=== PATIENT | male | born 1960 | race African-American/Black ===

== ENCOUNTER 2020-06-02 11:41 | Inpatient (IN) | payer OTHER ==
--- NOTE | 2020-06-02 12:05 | BHS.RME ---
Substance Use & Tx History - Substance Use History Heroin Substance amount: 1 bundle Frequency of use: Daily Substance route: Inhalation (ex: sniffing or snorting) Date of Last Use: 06/02/20 (started age 40) Alcohol Substance amount: 2-3 beers 16 oz Frequency of use: Less than 3 times per week Substance route: Oral Date of Last Use: 06/01/20 (started age 17) Nicotine Substance amount: 10 ciggs Frequency of use: Daily Substance route: Smoking Date of Last Use: 06/02/20 (started age 22) Physical/Psych/Mental Status - Behavior General Behavior: Increased activity (restlessness, agitation) Eye Contact: Normal - Cooperativeness Cooperativeness: Cooperative - Thinking Thought Processes: Tight, Logical, Goal Directed - Physical Health Problems Is patient presently having any pain?: No Does patient presently have any injuries (include location): No Does patient currently have a fever: No Is patient : No COWS - Scale Resting Pulse: 0= [place] 80 or Below Sweatin= No chills or Flushing Restless Observation: 1= Difficult to Sit Still Pupil Size: 0= Normal to Room Light Bone or Joint Aches: 2= Severe Diffuse Aches Runny Nose/ Eye Tearin= Nasal Congestion GI Upset > 30mins: 0= None Tremor Observation: 1= Tremor [place], Not Seen Yawning Observation: 1= 1-2x During Session Anxiety or Irritability: 1=Feels Anxious/Irritable Goose Flesh Skin: 0=Smooth Skin (not yet in full withdrawals due to use at 11AM) COWS Score: 7
[2020-06-02 13:35] VITALS: BMI 26.7
--- NOTE | 2020-06-02 13:57 | HP ---
COWS - Scale Resting Pulse: 0= [place] 80 or Below Sweatin= No chills or Flushing Restless Observation: 1= Difficult to Sit Still Pupil Size: 0= Normal to Room Light Bone or Joint Aches: 2= Severe Diffuse Aches Runny Nose/ Eye Tearin= Nasal Congestion GI Upset > 30mins: 0= None Tremor Observation: 1= Tremor [place], Not Seen Yawning Observation: 1= 1-2x During Session Anxiety or Irritability: 1=Feels Anxious/Irritable Goose Flesh Skin: 0=Smooth Skin (not yet in full withdrawals due to use at 11AM) COWS Score: 7 CIWA Score - Admission Criteria OASAS Guidelines: Admission for Medically Managed Detox: Requires at least one of the followin. CIWA greater than 12 2. Seizures within the past 24 hours 3. Delirium tremens within the past 24 hours 4. Hallucinations within the past 24 hours 5. Acute intervention needed for co occurring medical disorder 6. Acute intervention needed for co occurring psychiatric disorder 7. Severe withdrawal that cannot be handled at a lower level of care (continued vomiting, continued diarrhea, abnormal vital signs) requiring intravenous medication and/or fluids 8. Admitting History and Physical - Admission Chief Complaint: 59 yo M requesting detox from alcohol and heroin. History of Present Illness: 59 yo M requesting detox from alcohol and heroin. Pt reports relapsing on 09/2019 after being abstinent for 1 year prior to that. Last here in 2015. Meets criteria d/t high risk of overdose. PMH R knee brace s/p injury PSH R knee meniscus repair (2004) Psych none Social/Domiciled Living in [place] with fiance Legal none - Substance Use History Heroin Substance amount: 1 bundle Frequency of use: Daily Substance route: Inhalation (ex: sniffing or snorting) Date of Last Use: 06/02/20 (started age 40) Alcohol Substance amount: 2-3 beers 16 oz Frequency of use: Less than 3 times per week Substance route: Oral Date of Last Use: 06/01/20 (started age 17) Nicotine Substance amount: 10 ciggs Frequency of use: Daily Substance route: Smoking Date of Last Use: 06/02/20 (started age 22) History Source: Patient Limitations to Obtaining History: No Limitations - Smoking History Smoking history: Current every day smoker Aproximately how many cigarettes per day: 10 - Alcohol/Substance Use Hx Alcohol Use: Yes Admission ROS S - HPI Allergies/Adverse Reactions: Allergies Allergy/AdvReac Type Severity Reaction Status Date / Time No Known Allergies Allergy Verified 06/02/20 13:39 - Ebola screening Have you traveled outside of the country in the last 21 days: No Have you been sick,other than usual withdrawal symptoms: No Do you have a fever: No - Review of Systems Constitutional: No Symptoms Reported EENT: reports: Blurred Vision (far-sighted has glasses with him), Nose Congestion Respiratory: reports: No Symptoms reported Cardiac: reports: No Symptoms Reported GI: reports: Nausea Musculoskeletal: reports: Joint Pain, Muscle Pain (chronic knee pain (R knee)) Integumentary: reports: No Symptoms Reported Neuro: reports: No Symptoms reported Endocrine: reports: No Symptoms Reported Hematology: reports: No Symptoms Reported Psychiatric: reports: No Sypmtoms Reported Patient History - Patient Medical History Hx Anemia: No Hx Asthma: No Hx Chronic Obstructive Pulmonary Disease (COPD): No Hx Cancer: No Hx Cardiac Disorders: No Hx Congestive Heart Failure: No Hx Hypertension: No Hx Hypercholesterolemia: No Hx Pacemaker: No HX Cerebrovascular Accident: No Hx Seizures: No Hx Dementia: No Hx Diabetes: No Hx Gastrointestinal Disorders: No Hx Liver Disease: No Hx Genitourinary Disorders: No Hx Sexually Transmitted Disorders: Yes (1985,TREATED) Hx Renal Disease (ESRD): No Hx Thyroid Disease: No Hx Human Immunodeficiency Virus (HIV): No Hx Hepatitis C: No Hx Depression: No Hx Suicide Attempt: No Hx Bipolar Disorder: No Hx Schizophrenia: No - Patient Surgical History Past Surgical History: Yes Hx Neurologic Surgery: No Hx Cataract Extraction: No Hx Cardiac Surgery: No Hx Lung Surgery: No Hx Breast Surgery: No Hx Breast Biopsy: No Hx Abdominal Surgery: No Hx Appendectomy: No Hx Cholecystectomy: No Hx Genitourinary Surgery: No Hx Section: No Hx Orthopedic Surgery: Yes (MENISECTOMY RT. KNEE) Anesthesia Reaction: No - PPD History Previous Implant?: Yes Date: 11/24/15 - Smoking Cessation Smoking history: Current every day smoker Have you smoked in the past 12 months: Yes Aproximately how many cigarettes per day: 10 Hx Chewing Tobacco Use: No Initiated information on smoking cessation: Yes 'Breaking Loose' booklet given: 06/02/20 - Substances abused Alcohol Substance route: Oral Frequency: Daily Amount used: 2-3 beers(160z each) Age of first use: 17 Date of last use: 06/01/20 Heroin Substance route: Inhalation Frequency: Daily Amount used: 1 bundle Age of first use: 40 Date of last use: 06/02/20 [facility] - Vital Signs Vital Signs: Vital Signs - 24 hr 06/02/20 06/02/20 13:33 13:36 Temperature 97.8 F 97.8 F Pulse Rate 58 L 58 L Respiratory 18 18 Rate Blood Pressure 131/77 131/77 - Physical General Appearance: Yes: No Apparent Distress, Nourished, Appropriately Dressed HEENTM: Yes: EOMI, Hearing grossly Normal, Normocephalic, Normal Voice Respiratory: Yes: Lungs Clear, Normal Breath Sounds, No Respiratory Distress, No Accessory Muscle Use Neck: Yes: Supple, Trachea in good position Breast: Yes: Breast Exam Deferred Cardiology: Yes: Regular Rhythm, Bradycardia Abdominal: Yes: Normal Bowel Sounds, Non Tender, Flat, Soft Genitourinary: Yes: Other (deferred) Back: Yes: Normal Inspection Musculoskeletal: Yes: Gait Steady Extremities: Yes: Normal Inspection, Non-Tender, Swelling (R knee mildly swollen and warm), Other Neurological: Yes: Alert, Normal Response Integumentary: Yes: Normal Color, Dry, Warm - Diagnostic (1) Alcohol use disorder Current Visit: Yes Status: Acute Comment: admit; monitor for withdrawl sx (2) Chronic pain of right knee Current Visit: Yes Status: Chronic Comment: motrin/tylenol prn (3) Nicotine dependence Current Visit: Yes Status: Acute Qualifiers: Nicotine product type: cigarettes Substance use status: uncomplicated Qualified Code(s): F17.210 - Nicotine dependence, cigarettes, uncomplicated Comment: nicotine replacement therapy (4) Opioid dependence with withdrawal Current Visit: No Status: Acute Comment: admit; methadone detox protocol EKG Cleared for [facility]mission [facility] - Detox or Rehab [facility] Level of Care: Medically Managed Detox Regimen/Protocol: Methadone Breathalyzer - Breathalyzer Breathalyzer: 0 Urine Drug Screen - Test Device Lot number: [id number] Expiration date: 12/18/21 - Control Is test valid?: Yes - Results Drug screen NEGATIVE: No Urine drug screen results: MOP-Opiates Inpatient Rehab Admission - Rehab Decision to Admit Inpatient rehab admission?: No
[2020-06-02] MEDS ORDERED: NICOTINE POLACRILEX 2 MG GUM BUC PRN (14:13)
[2020-06-02] MEDS ORDERED: MAGNESIUM CITRATE 300 ML BOTTLE PO PRN (14:13)
[2020-06-02] MEDS ORDERED: BISMUTH SUBSALICYLATE 262 MG/15 ML BTL PO PRN (14:13)
[2020-06-02] MEDS ORDERED: METHOCARBAMOL 500 MG TABLET PO PRN (14:13)
[2020-06-02] MEDS ORDERED: IBUPROFEN 400 MG TABLET (FP) PO PRN (14:13)
[2020-06-02] MEDS ORDERED: cloNIDine HCL 0.1 MG TABLET PO PRN (14:13)
[2020-06-02] MEDS ORDERED: MAGNESIUM HYDROX 2400MG/30ML ORAL SUSPENSION 30 ML CUP PO PRN (14:13)
[2020-06-02] MEDS ORDERED: ACETAMINOPHEN 325 MG TABLET (FP) PO PRN ×2 (14:13)
[2020-06-02] MEDS ORDERED: METHADONE HCL 10 MG TABLET (FOR DETOX USE ONLY) PO ONE (14:13)
[2020-06-02] MEDS ORDERED: ONDANSETRON *ODT* 4 MG TABLET SL PRN (14:13)
[2020-06-02] MEDS ORDERED: MAG HYDROX/AL HYDROX/SIMETH 30 ML UNIT-DOSE CUP PO PRN (14:13)
[2020-06-02] MEDS ORDERED: MENTHOL/PHENOL 1 EACH UD MM PRN (14:13)
[2020-06-02] MEDS: NICOTINE 14 MG/24 HOURS TOPICAL PATCH TD SCH (15:07)
[2020-06-02] MEDS: hydrOXYzine PAMOATE 25 MG CAPSULE (FP) PO SCH ×2 (17:32→22:24)
[2020-06-02 20:18] LABS: HEMATOCRIT 40.9 % (35.4-49); HEMOGLOBIN 13.5 GM/dL (11.7-16.9); MCH 31.6 pg (25.7-33.7); MEAN PLT VOLUME 8.5 fl (7.5-11.1); PLATELET COUNT 285 K/MM3 (134-434); RBC 4.26 M/mm3 (4.00-5.60); RDW 12.4 % (11.9-15.9); WHITE BLOOD COUNT 6.1 K/mm3 (4.0-10.0)
[2020-06-02 20:26] LABS: BILIRUBIN,TOTAL 0.9 mg/dL (0.2-1); BLOOD UREA NITROGEN 18.1 mg/dL (7-18); CALCIUM 8.9 mg/dL (8.5-10.1); POTASSIUM 5.2 mmol/L (3.5-5.1); TOT PROT 7.5 g/dl (6.4-8.2)
[2020-06-02] MEDS: MELATONIN 5 MG TABLETS PO SCH (22:24)
[2020-06-02] MEDS: THIAMINE HCL 100 MG TABLET (FP) PO SCH (22:24)
[2020-06-03] MEDS: hydrOXYzine PAMOATE 25 MG CAPSULE (FP) PO SCH ×2 (07:57→13:47)
--- NOTE | 2020-06-03 08:29 | PN ---
Teaching Attending Note Name of Resident: Humberto De Guzman ATTENDING PHYSICIAN STATEMENT I saw and evaluated the patient. I reviewed the resident's note and discussed the case with the resident. I agree with the resident's findings and plan as documented. SUBJECTIVE: OBJECTIVE: ASSESSMENT AND PLAN: 1. Opioid use disorder, withdrawl Plan 1. Admit to detox, methadone protocol
[2020-06-03] MEDS ORDERED: METHADONE HCL 5 MG TABLET (FOR DETOX USE ONLY) ONE (09:06)
[2020-06-03] MEDS ORDERED: METHADONE HCL 10 MG TABLET (FOR DETOX USE ONLY) ONE (09:06)
--- NOTE | 2020-06-03 09:44 | EKG ---
Test Reason : Blood Pressure : / mmHG Vent. Rate : 056 BPM Atrial Rate : 056 BPM P-R Int : 134 ms QRS Dur : 086 ms QT Int : 410 ms P-R-T Axes : 055 -02 045 degrees QTc Int : 395 ms SINUS BRADYCARDIA OTHERWISE NORMAL ECG NO PREVIOUS ECGS AVAILABLE Confirmed by Garrett Fleming ([id number]) on 06/03/2020 9:43:43 AM Referred By: Confirmed By:Garrett Fleming
[2020-06-03] MEDS ORDERED: METHADONE (DETOX) 20 MG, METHADONE (DETOX) 5 MG PO ONE (10:00)
[2020-06-03] MEDS: PRENATAL VITAMINS W/ FOLIC ACID TABLET (FP) PO SCH (11:18)
[2020-06-03] MEDS: NICOTINE 14 MG/24 HOURS TOPICAL PATCH TD SCH (11:18)
--- NOTE | 2020-06-03 11:50 | PN ---
BHS COWS - Scale Resting Pulse: 0= [place] 80 or Below Sweatin= Chills/Flushing Restless Observation: 1= Difficult to Sit Still Pupil Size: 0= Normal to Room Light Bone or Joint Aches: 1= Mild Discomfort Runny Nose/ Eye Tearin= None GI Upset > 30mins: 0= None Tremor Observation of Outstretched Hands: 1= Tremor [place], Not Seen Yawning Observation: 1= 1-2x During Session Anxiety or Irritability: 0= None Goose Flesh Skin: 0=Smooth Skin COWS Score: 5 BHS Progress Note (SOAP) Subjective: feeling ok sweats tired interrupted sleep Objective: 06/03/20 11:50 Vital Signs Temperature 98.1 F 06/03/20 09:11 Pulse Rate 74 06/03/20 09:11 Respiratory Rate 16 06/03/20 09:11 Blood Pressure 137/71 06/03/20 09:11 O2 Sat by Pulse Oximetry (%) 97 06/03/20 06:15 Laboratory Tests 06/02/20 06/02/20 06/02/20 13:00 13:00 13:00 WBC 6.1 RBC 4.26 Hgb 13.5 Hct 40.9 MCV 96.0 MCH 31.6 MCHC 33.0 RDW 12.4 Plt Count 285 D MPV 8.5 Sodium 138 Potassium 5.2 H Chloride 101 Carbon Dioxide 34 H Anion Gap 3 L BUN 18.1 H Creatinine 1.0 Est GFR (CKD-EPI)AfAm 96.40 Est GFR (CKD-EPI)NonAf 83.18 Random Glucose 99 Calcium 8.9 Total Bilirubin 0.9 AST 20 ALT 20 Alkaline Phosphatase 66 Total Protein 7.5 Albumin 4.0 Syphilis Serology Reactive A* labs noted mildly elevated potassium and BUN will repeat labs aaox3 lying in bed no acute distress Assessment: 06/03/20 11:51 withdrawals Plan: continue detox repeat cmp
[2020-06-03] MEDS: THIAMINE HCL 100 MG TABLET (FP) PO SCH (22:14)
[2020-06-03] MEDS: hydrOXYzine PAMOATE 25 MG CAPSULE (FP) PO PRN (22:14)
[2020-06-03] MEDS: MELATONIN 5 MG TABLETS PO SCH (22:14)
[2020-06-04] MEDS ORDERED: METHADONE HCL 10 MG TABLET (FOR DETOX USE ONLY) PO ONE (10:00)
[2020-06-04] MEDS: PRENATAL VITAMINS W/ FOLIC ACID TABLET (FP) PO SCH (10:12)
[2020-06-04] MEDS: NICOTINE 14 MG/24 HOURS TOPICAL PATCH TD SCH (10:12)
--- NOTE | 2020-06-04 12:35 | PN ---
BHS COWS - Scale Resting Pulse: 0= [place] 80 or Below Sweatin= Chills/Flushing Restless Observation: 1= Difficult to Sit Still Pupil Size: 0= Normal to Room Light Bone or Joint Aches: 0= None Runny Nose/ Eye Tearin= None GI Upset > 30mins: 0= None Tremor Observation of Outstretched Hands: 1= Tremor [place], Not Seen Yawning Observation: 0= None Anxiety or Irritability: 1=Feels Anxious/Irritable Goose Flesh Skin: 0=Smooth Skin COWS Score: 4 BHS Progress Note (SOAP) Subjective: feeling better tired body aches Objective: 06/04/20 12:34 Vital Signs Temperature 97.1 F L 06/04/20 08:11 Pulse Rate 77 06/04/20 08:11 Respiratory Rate 16 06/04/20 08:11 Blood Pressure 135/92 06/04/20 08:11 O2 Sat by Pulse Oximetry (%) 98 06/04/20 08:11 Laboratory Tests 06/02/20 06/02/20 06/02/20 13:00 13:00 13:00 WBC 6.1 RBC 4.26 Hgb 13.5 Hct 40.9 MCV 96.0 MCH 31.6 MCHC 33.0 RDW 12.4 Plt Count 285 D MPV 8.5 Sodium 138 Potassium 5.2 H Chloride 101 Carbon Dioxide 34 H Anion Gap 3 L BUN 18.1 H Creatinine 1.0 Est GFR (CKD-EPI)AfAm 96.40 Est GFR (CKD-EPI)NonAf 83.18 Random Glucose 99 Calcium 8.9 Total Bilirubin 0.9 AST 20 ALT 20 Alkaline Phosphatase 66 Total Protein 7.5 Albumin 4.0 Syphilis Serology Reactive A* RPR Titer COVID-19 (GET) 06/02/20 06/02/20 13:00 14:30 WBC RBC Hgb Hct MCV MCH MCHC RDW Plt Count MPV Sodium Potassium Chloride Carbon Dioxide Anion Gap BUN Creatinine Est GFR (CKD-EPI)AfAm Est GFR (CKD-EPI)NonAf Random Glucose Calcium Total Bilirubin AST ALT Alkaline Phosphatase Total Protein Albumin Syphilis Serology RPR Titer Reactive 1:1 H D COVID-19 (GET) Not detected aaox3 ambulating no acute distress Assessment: 06/04/20 12:34 withdrawals Plan: continue detox
[2020-06-04] MEDS: hydrOXYzine PAMOATE 25 MG CAPSULE (FP) PO PRN (23:27)
[2020-06-04] MEDS: MELATONIN 5 MG TABLETS PO SCH (23:28)
[2020-06-04] MEDS: THIAMINE HCL 100 MG TABLET (FP) PO SCH (23:28)
[2020-06-05] MEDS: hydrOXYzine PAMOATE 25 MG CAPSULE (FP) PO PRN ×2 (03:38→09:40)
[2020-06-05 07:20] VITALS: TEMP 97.1
[2020-06-05] MEDS ORDERED: METHADONE HCL 5 MG TABLET (FOR DETOX USE ONLY) ONE (09:19)
[2020-06-05] MEDS ORDERED: METHADONE HCL 10 MG TABLET (FOR DETOX USE ONLY) ONE (09:20)
[2020-06-05] MEDS: NICOTINE 14 MG/24 HOURS TOPICAL PATCH TD SCH (09:37)
[2020-06-05] MEDS: PRENATAL VITAMINS W/ FOLIC ACID TABLET (FP) PO SCH (09:38)
[2020-06-05 09:59] VITALS: BP 128/74; PULSE 72
[2020-06-05] MEDS ORDERED: METHADONE (DETOX) 10 MG, METHADONE (DETOX) 5 MG PO ONE (10:00)
[2020-06-05 11:04] LABS: BLOOD UREA NITROGEN 14.9 mg/dL (7-18); CREATININE 0.9 mg/dL (0.55-1.3)
[2020-06-05 11:05] LABS: ALBUMIN 3.8 g/dl (3.4-5.0); BILIRUBIN,TOTAL 0.8 mg/dL (0.2-1); CALCIUM 9.1 mg/dL (8.5-10.1); POTASSIUM 4.4 mmol/L (3.5-5.1); TOT PROT 7.2 g/dl (6.4-8.2)
--- NOTE | 2020-06-05 13:26 | DS ---
[facility] Detox Discharge Summary Admission Date: 06/02/20 Discharge Date: 06/05/20 - History Present History: Alcohol Dependence, Opioid Dependence - Physical Exam Results Vital Signs: Vital Signs Temperature 97.1 F L 06/05/20 08:51 Pulse Rate 72 06/05/20 08:51 Respiratory Rate 18 06/05/20 08:51 Blood Pressure 128/74 06/05/20 08:51 O2 Sat by Pulse Oximetry (%) 97 06/05/20 08:51 Pertinent Admission Physical Exam Findings: Vital Signs Temperature 97.1 F L 06/05/20 08:51 Pulse Rate 72 06/05/20 08:51 Respiratory Rate 18 06/05/20 08:51 Blood Pressure 128/74 06/05/20 08:51 O2 Sat by Pulse Oximetry (%) 97 06/05/20 08:51 Laboratory Tests 06/02/20 06/02/20 06/02/20 13:00 13:00 13:00 WBC 6.1 RBC 4.26 Hgb 13.5 Hct 40.9 MCV 96.0 MCH 31.6 MCHC 33.0 RDW 12.4 Plt Count 285 D MPV 8.5 Sodium 138 Potassium 5.2 H Chloride 101 Carbon Dioxide 34 H Anion Gap 3 L BUN 18.1 H Creatinine 1.0 Est GFR (CKD-EPI)AfAm 96.40 Est GFR (CKD-EPI)NonAf 83.18 Random Glucose 99 Calcium 8.9 Total Bilirubin 0.9 AST 20 ALT 20 Alkaline Phosphatase 66 Total Protein 7.5 Albumin 4.0 Syphilis Serology Reactive A* RPR Titer COVID-19 (GET) 06/02/20 06/02/20 06/05/20 13:00 14:30 07:50 WBC RBC Hgb Hct MCV MCH MCHC RDW Plt Count MPV Sodium 139 Potassium 4.4 Chloride 105 Carbon Dioxide 30 Anion Gap 4 L BUN 14.9 Creatinine 0.9 Est GFR (CKD-EPI)AfAm 109.50 Est GFR (CKD-EPI)NonAf 94.48 Random Glucose 91 Calcium 9.1 Total Bilirubin 0.8 AST 16 ALT 24 Alkaline Phosphatase 66 Total Protein 7.2 Albumin 3.8 Syphilis Serology RPR Titer Reactive 1:1 H D COVID-19 (GET) Not detected labs noted aaox3 ambulating no acute distress lungs CTA - Treatment Hospital Course: Detox Protocol Followed, Detoxed Safely, Responded well, Discharged Condition Good, Rehab Referral Accepted - Medication Discharge Medications: Ambulatory Orders NK [No Known Home Medication] 11/22/15 - Diagnosis (1) Nicotine dependence Current Visit: Yes Status: Chronic Qualifiers: Nicotine product type: cigarettes Substance use status: uncomplicated Qualified Code(s): F17.210 - Nicotine dependence, cigarettes, uncomplicated (2) Chronic pain of right knee Current Visit: Yes Status: Chronic (3) Alcohol dependence with uncomplicated withdrawal Current Visit: Yes Status: Acute (4) Low back pain Current Visit: No Status: Chronic Qualifiers: Back pain laterality: right Sciatica presence: with sciatica Sciatica laterality: sciatica of right side Qualified Code(s): M54.41 - Lumbago with s ciatica, right side (5) Opioid dependence with withdrawal Current Visit: Yes Status: Chronic - AMA Did Patient Leave Against Medical Advice: No
[2020-06-06] MEDS ORDERED: METHADONE HCL 10 MG TABLET (FOR DETOX USE ONLY) PO ONE (10:00)
[2020-06-07] MEDS ORDERED: METHADONE HCL 5 MG TABLET (FOR DETOX USE ONLY) PO ONE (06:00)
== END 2020-06-05 11:11 | disposition home or self-care (01) | DRG 773 ==
LOC: YASAS 11:41 → Y6N 14:22
PROVIDERS: ADMIT Allergy & Immunology; ATTEND Allergy & Immunology
PROC: HZ2ZZZZ Detoxification Services for Substance Abuse Treatment (ICD-10-PCS; principal; 2020-06-02)
DX: F10.230 Alcohol dependence with withdrawal, uncomplicated (principal); F11.23 Opioid dependence with withdrawal; F17.210 Nicotine dependence, cigarettes, uncomplicated; M54.41 Lumbago with sciatica, right side; M25.561 Pain in right knee; G89.29 Other chronic pain; Z86.19 Personal history of other infectious and parasitic diseases; Z98.890 Other specified postprocedural states
CPT/HCPCS: 36415; 80053; 85027; 86593; 86780; 93005; 93010; J0735; U0003

== ENCOUNTER 2021-08-19 17:35 | Inpatient (IN) | payer OTHER ==
[2021-08-19] MEDS ORDERED: ONDANSETRON *ODT* 4 MG TABLET SL PRN (19:06)
[2021-08-19] MEDS ORDERED: MAG HYDROX/AL HYDROX/SIMETH 30 ML UNIT-DOSE CUP PO PRN (19:06)
[2021-08-19] MEDS ORDERED: BISMUTH SUBSALICYLATE 524 MG/30 ML PO PRN (19:06)
[2021-08-19] MEDS ORDERED: IBUPROFEN 400 MG TABLET (FP) PO PRN (19:06)
[2021-08-19] MEDS ORDERED: ACETAMINOPHEN 325 MG TABLET (FP) PO PRN ×2 (19:06)
[2021-08-19] MEDS ORDERED: MAGNESIUM CITRATE 300 ML BOTTLE PO PRN (19:06)
[2021-08-19] MEDS ORDERED: MAGNESIUM HYDROX 2400MG/30ML ORAL SUSPENSION 30 ML CUP PO PRN (19:06)
[2021-08-19] MEDS ORDERED: MENTHOL/PHENOL 1 EACH UD MM PRN (19:06)
[2021-08-19 23:35] VITALS: BMI 24.0
[2021-08-20] MEDS: THIAMINE HCL 100 MG TABLET (FP) PO SCH ×2 (00:21→22:58)
[2021-08-20] MEDS: MELATONIN 5 MG TABLETS PO SCH ×2 (00:21→22:58)
[2021-08-20] MEDS: hydrOXYzine PAMOATE 25 MG CAPSULE (FP) PO SCH ×6 (00:21→22:58)
[2021-08-20] MEDS ORDERED: cloNIDine HCL 0.1 MG TABLET PO PRN (12:09)
[2021-08-20] MEDS ORDERED: methaDONE HCL 10 MG TABLET (FOR DETOX USE ONLY) PO ONE (12:09)
[2021-08-20] MEDS: diazePAM 5 MG TABLET PO PRN ×3 (12:35→22:59)
[2021-08-20] MEDS: METHOCARBAMOL 500 MG TABLET PO PRN (12:36)
[2021-08-20] MEDS: PRENATAL VITAMINS W/ FOLIC ACID TABLET (FP) PO SCH (12:36)
[2021-08-20 13:10] LABS: HEMATOCRIT 39.2 % (35.4-49); HEMOGLOBIN 13.3 GM/dL (11.7-16.9); MCH 32.9 pg (25.7-33.7); MEAN PLT VOLUME 8.4 fl (7.5-11.1); PLATELET COUNT 244 10^3/uL (134-434); RBC 4.04 M/mm3 (4.00-5.60); RDW 12.5 % (11.9-15.9); WHITE BLOOD COUNT 6.3 K/mm3 (4.0-10.0)
[2021-08-20 13:28] LABS: BLOOD UREA NITROGEN 18.6 mg/dL (7-18)
[2021-08-20 13:31] LABS: ALBUMIN 3.4 g/dl (3.4-5.0); CALCIUM 8.6 mg/dL (8.5-10.1)
[2021-08-20 13:35] LABS: CREATININE 0.9 mg/dL (0.55-1.3)
[2021-08-20 13:36] LABS: TOT PROT 6.5 g/dl (6.4-8.2)
[2021-08-20 13:39] LABS: BILIRUBIN,TOTAL 0.5 mg/dL (0.2-1)
[2021-08-21] MEDS: hydrOXYzine PAMOATE 25 MG CAPSULE (FP) PO SCH ×5 (06:11→22:49)
[2021-08-21] MEDS ORDERED: methaDONE HCL 10 MG TABLET (FOR DETOX USE ONLY) ONE (09:40)
[2021-08-21] MEDS: PRENATAL VITAMINS W/ FOLIC ACID TABLET (FP) PO SCH (11:10)
[2021-08-21] MEDS: diazePAM 5 MG TABLET PO PRN ×2 (11:12→17:57)
[2021-08-21] MEDS: NICOTINE 10 MG CARTRIDGE (INHALER) IH PRN ×2 (13:13→19:08)
[2021-08-21] MEDS: METHOCARBAMOL 500 MG TABLET PO PRN ×2 (14:36→22:46)
[2021-08-21] MEDS: MELATONIN 5 MG TABLETS PO SCH (22:46)
[2021-08-21] MEDS: THIAMINE HCL 100 MG TABLET (FP) PO SCH (22:46)
[2021-08-22] MEDS: METHOCARBAMOL 500 MG TABLET PO PRN (05:08)
[2021-08-22] MEDS: hydrOXYzine PAMOATE 25 MG CAPSULE (FP) PO SCH ×3 (05:08→13:49)
[2021-08-22] MEDS ORDERED: methaDONE HCL 10 MG TABLET (FOR DETOX USE ONLY) PO ONE (10:00)
[2021-08-22] MEDS: PRENATAL VITAMINS W/ FOLIC ACID TABLET (FP) PO SCH (10:21)
[2021-08-22 13:37] VITALS: BP 122/66; PULSE 79; TEMP 97.8
[2021-08-24] MEDS ORDERED: methaDONE HCL 10 MG TABLET (FOR DETOX USE ONLY) PO ONE (10:00)
== END 2021-08-22 14:52 | disposition left against medical advice (07) | DRG 770 ==
LOC: YASAS 17:35 → Y6N 21:15
PROVIDERS: ADMIT Allergy & Immunology; ATTEND Allergy & Immunology
PROC: HZ2ZZZZ Detoxification Services for Substance Abuse Treatment (ICD-10-PCS; principal; 2021-08-19)
DX: F11.23 Opioid dependence with withdrawal (principal); F10.230 Alcohol dependence with withdrawal, uncomplicated; F17.210 Nicotine dependence, cigarettes, uncomplicated; M54.41 Lumbago with sciatica, right side; G89.29 Other chronic pain; M17.11 Unilateral primary osteoarthritis, right knee
CPT/HCPCS: 36415; 80053; 85027; 86593; 86780; C9803; J0735; U0003; U0005

== ENCOUNTER 2022-04-06 10:42 | Inpatient (IN) | payer OTHER ==
[2022-04-06 11:17] VITALS: BMI 25.1
[2022-04-06] MEDS ORDERED: MAGNESIUM HYDROX 2400MG/30ML ORAL SUSPENSION 30 ML CUP PO PRN (11:43)
[2022-04-06] MEDS ORDERED: NALOXONE HCL (KLOXXADO) 8 MG SPRAY NS PRN (11:43)
[2022-04-06] MEDS ORDERED: IBUPROFEN 400 MG TABLET (FP) PO PRN (11:43)
[2022-04-06] MEDS ORDERED: LOPERAMIDE HCL 2 MG CAPSULE PO PRN (11:43)
[2022-04-06] MEDS ORDERED: DICYCLOMINE HCL 10 MG CAPSULE PO PRN (11:43)
[2022-04-06] MEDS ORDERED: BENZOCAINE/MENTHOL (CHLORASEPTIC ) LOZENGE MM PRN (11:43)
[2022-04-06] MEDS ORDERED: IBUPROFEN 600 MG TABLET (FP) PO PRN (11:43)
[2022-04-06] MEDS ORDERED: ACETAMINOPHEN 325 MG TABLET (FP) PO PRN ×2 (11:43)
[2022-04-06] MEDS ORDERED: MAGNESIUM CITRATE 300 ML BOTTLE PO PRN (11:43)
[2022-04-06] MEDS ORDERED: ONDANSETRON *ODT* 4 MG TABLET SL PRN (11:43)
[2022-04-06] MEDS ORDERED: BISMUTH SUBSALICYLATE 262 MG/15 ML BTL PO PRN (11:43)
[2022-04-06] MEDS ORDERED: MAG HYDROX/AL HYDROX/SIMETH 30 ML UNIT-DOSE CUP PO PRN (11:43)
[2022-04-06] MEDS ORDERED: cloNIDine HCL 0.1 MG TABLET PO PRN (15:22)
[2022-04-06] MEDS: hydrOXYzine PAMOATE 25 MG CAPSULE (FP) PO SCH ×3 (15:50→22:23)
[2022-04-06] MEDS: NICOTINE 7 MG/24 HOURS TOPICAL PATCH TD SCH (15:50)
[2022-04-06] MEDS ORDERED: methaDONE HCL 10 MG TABLET (FOR DETOX USE ONLY) PO ONE (16:45)
[2022-04-06 17:15] LABS: HEMATOCRIT 43.8 % (35.4-49); HEMOGLOBIN 14.2 GM/dL (11.7-16.9); MCH 31.2 pg (25.7-33.7); MCHC 32.5 g/dl (32.0-35.9); MEAN CELL VOLUME 95.9 fl (80-96); MEAN PLT VOLUME 8.5 fl (7.5-11.1); PLATELET COUNT 260 10^3/uL (134-434); RBC 4.57 M/mm3 (4.00-5.60); RDW 12.9 % (11.9-15.9); WHITE BLOOD COUNT 7.9 K/mm3 (4.0-10.0)
[2022-04-06 17:24] LABS: ALBUMIN 4.2 g/dl (3.4-5.0); BLOOD UREA NITROGEN 17.3 mg/dL (7-18)
[2022-04-06 17:25] LABS: CALCIUM 9.6 mg/dL (8.5-10.1)
[2022-04-06 17:26] LABS: CREATININE 0.9 mg/dL (0.55-1.3)
[2022-04-06 17:28] LABS: TOT PROT 7.5 g/dl (6.4-8.2)
[2022-04-06 17:30] LABS: BILIRUBIN,TOTAL 0.5 mg/dL (0.2-1)
[2022-04-06] MEDS: MELATONIN 5 MG TABLETS PO SCH (22:23)
[2022-04-06] MEDS: COLCHICINE 0.6 MG TAB PO SCH (22:24)
[2022-04-06] MEDS: THIAMINE HCL 100 MG TABLET (FP) PO SCH (22:24)
[2022-04-07] MEDS: hydrOXYzine PAMOATE 25 MG CAPSULE (FP) PO SCH ×5 (06:36→23:08)
[2022-04-07] MEDS ORDERED: methaDONE HCL 10 MG TABLET (FOR DETOX USE ONLY) ONE (09:04)
[2022-04-07] MEDS: COLCHICINE 0.6 MG TAB PO SCH ×2 (10:41→23:08)
[2022-04-07] MEDS: PRENATAL VITAMINS W/ FOLIC ACID TABLET (FP) PO SCH (10:41)
[2022-04-07] MEDS: NICOTINE 7 MG/24 HOURS TOPICAL PATCH TD SCH (10:41)
[2022-04-07] MEDS: NICOTINE 10 MG CARTRIDGE (INHALER) IH PRN (16:34)
[2022-04-07] MEDS: THIAMINE HCL 100 MG TABLET (FP) PO SCH (23:08)
[2022-04-07] MEDS: MELATONIN 5 MG TABLETS PO SCH (23:08)
[2022-04-07] MEDS: METHOCARBAMOL 500 MG TABLET PO PRN (23:10)
[2022-04-08] MEDS: hydrOXYzine PAMOATE 25 MG CAPSULE (FP) PO SCH ×5 (07:10→22:43)
[2022-04-08] MEDS ORDERED: methaDONE HCL 10 MG TABLET (FOR DETOX USE ONLY) PO ONE (10:00)
[2022-04-08] MEDS: PRENATAL VITAMINS W/ FOLIC ACID TABLET (FP) PO SCH (10:29)
[2022-04-08] MEDS: NICOTINE 7 MG/24 HOURS TOPICAL PATCH TD SCH (10:30)
[2022-04-08] MEDS: COLCHICINE 0.6 MG TAB PO SCH ×2 (10:30→22:42)
[2022-04-08] MEDS: NICOTINE 10 MG CARTRIDGE (INHALER) IH PRN (11:44)
[2022-04-08 15:21] LABS: CALCIUM 9.2 mg/dL (8.5-10.1)
[2022-04-08 15:22] LABS: BLOOD UREA NITROGEN 14.5 mg/dL (7-18)
[2022-04-08 15:25] LABS: CREATININE 0.9 mg/dL (0.55-1.3)
[2022-04-08 17:57] VITALS: RESP 18
[2022-04-08] MEDS: diazePAM 5 MG TABLET PO PRN (18:14)
[2022-04-08] MEDS: MELATONIN 5 MG TABLETS PO SCH (22:42)
[2022-04-08] MEDS: THIAMINE HCL 100 MG TABLET (FP) PO SCH (22:43)
[2022-04-09] MEDS: hydrOXYzine PAMOATE 25 MG CAPSULE (FP) PO SCH ×5 (06:55→22:23)
[2022-04-09] MEDS: NICOTINE 10 MG CARTRIDGE (INHALER) IH PRN ×2 (09:39→19:36)
[2022-04-09] MEDS ORDERED: methaDONE HCL 10 MG TABLET (FOR DETOX USE ONLY) PO ONE (10:00)
[2022-04-09] MEDS: PRENATAL VITAMINS W/ FOLIC ACID TABLET (FP) PO SCH (10:14)
[2022-04-09] MEDS: NICOTINE 7 MG/24 HOURS TOPICAL PATCH TD SCH (10:15)
[2022-04-09] MEDS: METHOCARBAMOL 500 MG TABLET PO PRN (10:15)
[2022-04-09] MEDS: diazePAM 5 MG TABLET PO PRN ×2 (10:16→18:05)
[2022-04-09] MEDS: COLCHICINE 0.6 MG TAB PO SCH ×2 (10:16→22:23)
[2022-04-09] MEDS: THIAMINE HCL 100 MG TABLET (FP) PO SCH (22:23)
[2022-04-09] MEDS: MELATONIN 5 MG TABLETS PO SCH (22:23)
[2022-04-10] MEDS: diazePAM 5 MG TABLET PO PRN (00:58)
[2022-04-10 06:13] VITALS: BP 134/76; PULSE 68; TEMP 97.3
[2022-04-10] MEDS: hydrOXYzine PAMOATE 25 MG CAPSULE (FP) PO SCH ×2 (06:20→11:17)
[2022-04-10] MEDS ORDERED: methaDONE HCL 10 MG TABLET (FOR DETOX USE ONLY) PO ONE (10:00)
[2022-04-10] MEDS: COLCHICINE 0.6 MG TAB PO SCH (11:17)
[2022-04-10] MEDS: NICOTINE 7 MG/24 HOURS TOPICAL PATCH TD SCH (11:17)
[2022-04-10] MEDS: PRENATAL VITAMINS W/ FOLIC ACID TABLET (FP) PO SCH (11:17)
== END 2022-04-10 08:50 | disposition home or self-care (01) | DRG 773 ==
LOC: YASAS 10:42 → SUATTDRO 10:42 → Y3N 14:36
PROVIDERS: ADMIT Allergy & Immunology; ATTEND Surgery
PROC: HZ2ZZZZ Detoxification Services for Substance Abuse Treatment (ICD-10-PCS; principal; 2022-04-06)
DX: F11.23 Opioid dependence with withdrawal (principal); F10.230 Alcohol dependence with withdrawal, uncomplicated; F17.210 Nicotine dependence, cigarettes, uncomplicated; M25.561 Pain in right knee; M54.41 Lumbago with sciatica, right side; G89.29 Other chronic pain
CPT/HCPCS: 36415; 80048; 80053; 85027; 86593; 86780; C9803-CS; U0003; U0005

== ENCOUNTER 2023-03-08 15:25 | Inpatient (IN) | payer OTHER ==
[2023-03-08 16:38] VITALS: BMI 26.4
[2023-03-08] MEDS ORDERED: POLYETHYLENE GLYCOL (HEALTHYLAX) 3350 17 GM PACKET PO PRN (22:48)
[2023-03-08] MEDS ORDERED: BENZOCAINE/MENTHOL (CHLORASEPTIC ) LOZENGE MM PRN (22:48)
[2023-03-08] MEDS ORDERED: DICYCLOMINE HCL 10 MG CAPSULE PO PRN (22:48)
[2023-03-08] MEDS ORDERED: P-EPHED 60MG/TRIPROLIDI 2.5MG TABLET PO PRN (22:48)
[2023-03-08] MEDS ORDERED: BISMUTH SUBSALICYLATE 524 MG/30 ML PO PRN (22:48)
[2023-03-08] MEDS ORDERED: guaiFENesin 600 MG TABLET.ER (FP) PO PRN (22:48)
[2023-03-08] MEDS ORDERED: MAGNESIUM HYDROX 2400MG/30ML ORAL SUSPENSION 30 ML CUP PO PRN (22:48)
[2023-03-08] MEDS ORDERED: BENZONATATE 200 MG CAPSULE PO PRN (22:48)
[2023-03-08] MEDS ORDERED: LOPERAMIDE HCL 2 MG CAPSULE PO PRN (22:48)
[2023-03-08] MEDS ORDERED: ONDANSETRON *ODT* 4 MG TABLET SL PRN (22:48)
[2023-03-08] MEDS ORDERED: MAG HYDROX/AL HYDROX/SIMETH 30 ML UNIT-DOSE CUP PO PRN (22:48)
[2023-03-08] MEDS ORDERED: ACETAMINOPHEN 325 MG TABLET (FP) PO PRN (22:48)
[2023-03-08] MEDS ORDERED: NALOXONE HCL 0.4 MG/ML VIAL IM PRN (22:48)
[2023-03-08] MEDS ORDERED: NALOXONE HCL (KLOXXADO) 8 MG SPRAY NS PRN (22:48)
[2023-03-08] MEDS ORDERED: IBUPROFEN 400 MG TABLET (FP) PO PRN (22:48)
[2023-03-08] MEDS ORDERED: methaDONE HCL 10 MG TABLET (FOR DETOX USE ONLY) PO ONE (22:50)
[2023-03-08] MEDS ORDERED: MELATONIN 5 MG TABLETS ONE (23:14)
[2023-03-08] MEDS ORDERED: methaDONE HCL 10 MG TABLET (FOR DETOX USE ONLY) ONE (23:14)
[2023-03-09] MEDS: METHOCARBAMOL 500 MG TABLET PO PRN ×3 (01:11→23:23)
[2023-03-09] MEDS: hydrOXYzine PAMOATE 25 MG CAPSULE (FP) PO PRN ×2 (01:11→10:27)
[2023-03-09] MEDS: cloNIDine HCL 0.1 MG TABLET PO PRN ×2 (01:12→23:23)
[2023-03-09] MEDS: PRENATAL VITAMINS W/ FOLIC ACID TABLET (FP) PO SCH (10:27)
[2023-03-09 10:42] LABS: HEMATOCRIT 37.1 % (35.4-49); HEMOGLOBIN 12.2 GM/dL (11.7-16.9); MCH 31.1 pg (25.7-33.7); MCHC 32.9 g/dl (32.0-35.9); MEAN CELL VOLUME 94.6 fl (80-96); PLATELET COUNT 213 10^3/uL (134-434); RBC 3.92 M/mm3 (4.00-5.60); RDW 12.6 % (11.9-15.9); WHITE BLOOD COUNT 5.1 K/mm3 (4.0-10.0)
[2023-03-09 10:51] LABS: CALCIUM 8.8 mg/dL (8.5-10.1)
[2023-03-09 10:52] LABS: ALBUMIN 3.3 g/dl (3.4-5.0); BLOOD UREA NITROGEN 17.8 mg/dL (7-18)
[2023-03-09 10:55] LABS: CREATININE 0.8 mg/dL (0.55-1.3)
[2023-03-09 10:57] LABS: BILIRUBIN,TOTAL 0.7 mg/dL (0.2-1)
[2023-03-09] MEDS: MELATONIN 5 MG TABLETS PO SCH (23:20)
[2023-03-09] MEDS: THIAMINE HCL 100 MG TABLET (FP) PO SCH (23:21)
[2023-03-10] MEDS ORDERED: methaDONE HCL 10 MG TABLET (FOR DETOX USE ONLY) PO ONE (10:00)
[2023-03-10] MEDS: hydrOXYzine PAMOATE 25 MG CAPSULE (FP) PO PRN (10:08)
[2023-03-10] MEDS: METHOCARBAMOL 500 MG TABLET PO PRN (10:08)
[2023-03-10] MEDS: PRENATAL VITAMINS W/ FOLIC ACID TABLET (FP) PO SCH (10:08)
[2023-03-10] MEDS ORDERED: MAGNESIUM HYDROX 2400MG/30ML ORAL SUSPENSION 30 ML CUP PO ONE (11:27)
[2023-03-10] MEDS: DOCUSATE SODIUM 100 MG CAPSULE (FP) PO SCH ×2 (13:27→22:30)
[2023-03-10] MEDS: IBUPROFEN 600 MG TABLET (FP) PO PRN (15:05)
[2023-03-10] MEDS: MELATONIN 5 MG TABLETS PO SCH (22:30)
[2023-03-10] MEDS: THIAMINE HCL 100 MG TABLET (FP) PO SCH (22:30)
[2023-03-11] MEDS: diazePAM 5 MG TABLET PO PRN ×2 (05:44→18:29)
[2023-03-11] MEDS: DOCUSATE SODIUM 100 MG CAPSULE (FP) PO SCH ×3 (05:45→23:58)
[2023-03-11] MEDS: PRENATAL VITAMINS W/ FOLIC ACID TABLET (FP) PO SCH (10:20)
[2023-03-11] MEDS: IBUPROFEN 600 MG TABLET (FP) PO PRN (12:03)
[2023-03-11] MEDS: MELATONIN 5 MG TABLETS PO SCH (22:22)
[2023-03-11] MEDS: THIAMINE HCL 100 MG TABLET (FP) PO SCH (22:22)
[2023-03-11] MEDS: hydrOXYzine PAMOATE 25 MG CAPSULE (FP) PO PRN (22:24)
[2023-03-11] MEDS: METHOCARBAMOL 500 MG TABLET PO PRN (22:24)
[2023-03-12] MEDS: DOCUSATE SODIUM 100 MG CAPSULE (FP) PO SCH ×2 (05:38→05:41)
[2023-03-12] MEDS: diazePAM 5 MG TABLET PO PRN (05:54)
[2023-03-12 06:33] VITALS: RESP 18
[2023-03-12] MEDS ORDERED: methaDONE HCL 10 MG TABLET (FOR DETOX USE ONLY) PO ONE (10:00)
[2023-03-12] MEDS: PRENATAL VITAMINS W/ FOLIC ACID TABLET (FP) PO SCH (10:57)
[2023-03-12] MEDS: hydrOXYzine PAMOATE 25 MG CAPSULE (FP) PO PRN (10:57)
[2023-03-12] MEDS: METHOCARBAMOL 500 MG TABLET PO PRN (10:57)
[2023-03-12 13:19] VITALS: BP 146/71; PULSE 87; TEMP 98.6
== END 2023-03-12 13:15 | disposition home or self-care (01) | DRG 773 ==
LOC: YASAS 15:25 → Y6N 03-09
PROVIDERS: ADMIT Allergy & Immunology; ATTEND Surgery
PROC: HZ2ZZZZ Detoxification Services for Substance Abuse Treatment (ICD-10-PCS; principal; 2023-03-08)
DX: F11.23 Opioid dependence with withdrawal (principal); F10.10 Alcohol abuse, uncomplicated; M17.11 Unilateral primary osteoarthritis, right knee; Z87.891 Personal history of nicotine dependence
CPT/HCPCS: 36415; 80053; 85027; 86593; 86780; 87635